=== PATIENT | female | born 1990 | race Caucasian/White ===

== ENCOUNTER 2017-03-09 10:03 | Emergency (ER) | payer MEDICAID ==
[~2017-03-09] VITALS: Ht 154.9 cm; Wt 108.0 kg
[2017-03-09 10:23] VITALS: BP 136/63
--- NOTE | 2017-03-09 10:24 | PHYS DOC ---
Adult General Chief Complaint Chief Complaint: DENTAL PROBLEM HPI HPI Patient is a 26 year old female with history of migraine headaches currently on propranolol who presents today with dental pain mild in nature on the left lower gum that began yesterday. Patient states she is in a [facility] care [facility]. Patient denies any fever or trismus. Review of Systems Review of Systems Constitutional: Denies fever or chills [] Eyes: Denies change in visual acuity, redness, or eye pain [] HENT: Dental pain Musculoskeletal: Denies back pain or joint pain [] Integument: Denies rash or skin lesions [] Neurologic: Denies headache, focal weakness or sensory changes [] Endocrine: Denies polyuria or polydipsia [] Allergies Allergies Allergies Coded Allergies Type Severity Reaction Last Updated Verified No Known Drug Allergies 03/09/17 No Physical Exam Physical Exam Constitutional: Well developed, well nourished, no acute distress, non-toxic appearance. [] HENT: Normocephalic, atraumatic, bilateral external ears normal, oropharynx moist, no oral exudates, nose normal. [] Tooth # 17 is broken, there is dental carriers throughout her teeth, no gum redness Skin: Warm, dry, no erythema, no rash. [] Back: No tenderness, no CVA tenderness. [] Extremities: No tenderness, no cyanosis, no clubbing, ROM intact, no edema. [] Neurologic: Alert and oriented X 3, normal motor function, normal sensory function, no focal deficits noted. [] Psychologic: Affect normal, judgement normal, mood normal. [] EKG EKG [] Radiology/Procedures Radiology/Procedures [] Course & Med Decision Making Course & Med Decision Making Pertinent Labs and Imaging studies reviewed. (See chart for details) Patient is infected dental caries. OB discharged with amoxicillin and Ultram for pain. She was provided a dental list for follow-up. She was provided return precautions and discharged in stable condition. Dragon Disclaimer Dragon Disclaimer This electronic medical record was generated, in whole or in part, using a voice recognition dictation system. Departure Departure Impression: Primary Impression: Infected dental caries Additional Impression: Dentalgia Disposition: HOME, SELF-CARE Condition: STABLE Referrals: NO PCP (PCP) Follow-up with a dentist from the list provided Patient Instructions: Dental Caries Additional Instructions: You were seen for infected dental caries. Please follow-up with a dentist from the list provided in the next 7 days. Ensure you complete your antibiotics. Scripts Amoxicillin (AMOXICILLIN) 875 Mg Tablet 1 TAB PO BID, #20 TAB Prov: ANKITA SALDANA APRN 03/09/17 Tramadol Hcl (ULTRAM) 50 Mg Tablet 1 TAB PO Q6HRS, #30 TAB Prov: ANKITA SALDANA APRN 03/09/17 Problem Qualifiers ANKITA SALDANA APRN March 09, 2017 10:24
[2017-03-09] MEDS ORDERED: TRAM-29 PO (10:29)
[2017-03-09] MEDS ORDERED: AMOX875T PO (10:29)
== END 2017-03-09 10:46 | disposition home or self-care (01) ==
LOC: ER 10:03
DX: K02.9 Dental caries, unspecified (principal); G43.909 Migraine, unspecified, not intractable, without status migrainosus
CPT/HCPCS: 99283

== ENCOUNTER 2017-03-14 11:08 | Emergency (ER) | payer MEDICAID ==
[~2017-03-14] VITALS: Ht 154.9 cm; Wt 108.0 kg
[~2017-03-14 11:08] MED LIST: AMOX875T PO; TRAM-29 PO
[2017-03-14 11:30] VITALS: BP 141/82
[2017-03-14] MEDS ORDERED: HYDR-971 PO (12:08)
[2017-03-14] MEDS ORDERED: CHLO15MO2 PO (12:08)
--- NOTE | 2017-03-14 12:14 | PHYS DOC ---
Past Medical History Past Medical History: Cancer, Fibromyalgia, Migraines, Other Additional Past Medical Histor: PTSD, GASTROPARESIS, SKIN CA Past Surgical History: Cholecystectomy, Tonsillectomy, Other Additional Past Surgical Histo: SKIN CA REMOVAL, VAGINAL SX Alcohol Use: None Drug Use: None Adult General Chief Complaint Chief Complaint: DENTAL PROBLEM HPI HPI Patient is a 26 year old female who presents with ongoing dental pain. Currently on tramadol, penicillin, and ibuprofen without relief. No fevers. dental appointment next week. Review of Systems Review of Systems Constitutional: Denies fever or chills [] Eyes: Denies change in visual acuity, redness, or eye pain [] HENT: Denies nasal congestion or sore throat [] Respiratory: Denies cough or shortness of breath [] Cardiovascular: denies chest pain GI: Denies abdominal pain, nausea, vomiting, bloody stools or diarrhea [] : Denies dysuria or hematuria [] Musculoskeletal: Denies back pain or joint pain [] Integument: Denies rash or skin lesions [] Neurologic: Denies headache, focal weakness or sensory changes [] Allergies Allergies Allergies Coded Allergies Type Severity Reaction Last Updated Verified paroxetine Allergy Intermediate 03/14/17 Yes Physical Exam Physical Exam Constitutional: Well developed, well nourished, no acute distress, non-toxic appearance. [] HENT: Normocephalic, atraumatic, bilateral external ears normal, oropharynx moist, no oral exudates, nose normal. open decay base of tooth #18 with minimal surrounding erythema, no fluctuance. Eyes: PERRLA, EOMI, conjunctiva normal, no discharge. [] Neck: Normal range of motion, no tenderness, supple, no stridor. [] Cardiovascular:Heart rate regular at 100 and regular rhythm Lungs & Thorax: no resp distress Extremities: No tenderness, no cyanosis, no clubbing, ROM intact, no edema. [] Neurologic: Alert and oriented X 3, normal motor function, normal sensory function, no focal deficits noted. [] Current Patient Data Vital Signs Vital Signs Date Time Temp Pulse Resp B/P (MAP) Pulse Ox O2 Delivery O2 Flow Rate FiO2 03/14/17 11:30 98.3 122 18 96 Room Air 98.3 EKG EKG [] Radiology/Procedures Radiology/Procedures [] Course & Med Decision Making Course & Med Decision Making Pertinent Labs and Imaging studies reviewed. (See chart for details) counseled on completing antibiotics and follow-up with dentist. Added norco and peridex. Dragon Disclaimer Dragon Disclaimer This electronic medical record was generated, in whole or in part, using a voice recognition dictation system. Departure Departure Impression: Primary Impression: Dental infection Disposition: HOME, SELF-CARE Condition: STABLE Patient Instructions: Dental Pain Scripts Chlorhexidine Gluconate (PERIDEX) 15 Ml Mouthwash 15 ML PO BID, #473 ML swish and spit Prov: LIUNS MARTINEZ MD 03/14/17 Hydrocodone/Apap 5-325 (NORCO 5-325 TABLET) 1 Each Tablet 1-2 EACH PO PRN Q6HRS Y for PAIN, #8 as needed for pain Prov: LINUS MARTINEZ MD 03/14/17 LINUS MARTINEZ MD March 14, 2017 12:14
== END 2017-03-14 12:18 | disposition home or self-care (01) ==
LOC: ER 11:08
DX: K04.7 Periapical abscess without sinus (principal); M79.7 Fibromyalgia; G43.909 Migraine, unspecified, not intractable, without status migrainosus; F43.10 Post-traumatic stress disorder, unspecified; K31.84 Gastroparesis; Z88.8 Allergy status to other drugs, medicaments and biological substances
CPT/HCPCS: 99283

== ENCOUNTER 2017-09-24 10:49 | Emergency (ER) | payer MEDICAID, OTHER ==
[~2017-09-24] VITALS: Ht 154.9 cm; Wt 131.5 kg
[~2017-09-24 10:49] MED LIST changes: +CHLO15MO2 PO; +HYDR-971 PO; -TRAM-29 PO; +TRAM-48 PO
[2017-09-24 10:55] VITALS: BP 137/88
--- NOTE | 2017-09-24 11:11 | PHYS DOC ---
Past Medical History Past Medical History: Cancer, Fibromyalgia, Migraines, Other Additional Past Medical Histor: PTSD, GASTROPARESIS, SKIN CA Past Surgical History: Cholecystectomy, Tonsillectomy, Other Additional Past Surgical Histo: SKIN CA REMOVAL, VAGINAL SX Alcohol Use: None Drug Use: None Adult General Chief Complaint Chief Complaint: SHORTNESS OF BREATH HPI HPI Patient is a 27 year old female with history of fibromyalgia, migraine headaches, who presents today complaining of a cough for 1 day with wheezing. Patient is also complaining of shortness of breath on exertion. Patient denies any fever. Denies any chest pain. Patient denies any history of smoking, denies any hormone use, denies any recent hospitalizations, denies any chest pain, denies any personal family history of DVT or PE. Review of Systems Review of Systems Constitutional: Denies fever or chills [] Eyes: Denies change in visual acuity, redness, or eye pain [] HENT: Denies nasal congestion or sore throat [] Respiratory: Reports cough, wheezing and shortness of breath [] Cardiovascular: No additional information not addressed in HPI [] GI: Denies abdominal pain, nausea, vomiting, bloody stools or diarrhea [] : Denies dysuria or hematuria [] Musculoskeletal: Denies back pain or joint pain [] Integument: Denies rash or skin lesions [] Neurologic: Denies headache, focal weakness or sensory changes [] All other systems were reviewed and found to be within normal limits, except as documented in this note. Current Medications Current Medications Current Medications Medications (Trade) Dose Ordered Sig/Lauren Start Time Stop Time Status Last Admin Dose Admin Albuterol/ Ipratropium (Duoneb) 3 ml 1X ONCE 09/24/17 11:15 09/24/17 11:16 DC 09/24/17 11:23 3 ML Prednisone (Prednisone) 60 mg 1X ONCE 09/24/17 11:15 09/24/17 11:16 DC Allergies Allergies Allergies Coded Allergies Type Severity Reaction Last Updated Verified paroxetine Allergy Intermediate 03/14/17 Yes Physical Exam Physical Exam Constitutional: Well developed overweight patient, well nourished, no acute distress, non-toxic appearance. [] HENT: Normocephalic, atraumatic, bilateral external ears normal, oropharynx moist, no oral exudates, nose normal. [] Eyes: PERRLA, EOMI, conjunctiva normal, no discharge. [] Neck: Normal range of motion, no tenderness, supple, no stridor. [] Cardiovascular:Heart rate regular rhythm, no murmur [] Lungs & Thorax: Bilateral breath sounds clear to auscultation [] Abdomen: Bowel sounds normal, soft, no tenderness, no masses, no pulsatile masses. [] Skin: Warm, dry, no erythema, no rash. [] Back: No tenderness, no CVA tenderness. [] Extremities: No tenderness, no cyanosis, no clubbing, ROM intact, no edema. [] Neurologic: Alert and oriented X 3, normal motor function, normal sensory function, no focal deficits noted. [] Psychologic: Affect normal, judgement normal, mood normal. [] Current Patient Data Vital Signs Vital Signs Date Time Temp Pulse Resp B/P (MAP) Pulse Ox O2 Delivery O2 Flow Rate FiO2 09/24/17 11:25 Room Air 09/24/17 10:55 98.0 98 18 100 98.0 EKG EKG [] Radiology/Procedures Radiology/Procedures [] Course & Med Decision Making Course & Med Decision Making Pertinent Labs and Imaging studies reviewed. (See chart for details) This is a 27-year-old female patient presenting to the ED today with a cough for 1 week wheezing and shortness of breath. Patient's lungs are clear on arrival to the ED. Her vitals are stable with oxygen saturation at 100%. Chest x -ray interpreted by radiologist is negative for any acute findings. Patient probably has some viral bronchitis going on, her PERC score is zero. Discharged with albuterol inhaler prednisone and Tessalon Perles. Instructed to follow-up with her own PCP in one week. Provided return precautions and discharged in stable condition. Dragon Disclaimer Dragon Disclaimer This electronic medical record was generated, in whole or in part, using a voice recognition dictation system. Departure Departure Impression: Primary Impression: Acute bronchitis Disposition: 01 HOME, SELF-CARE Condition: STABLE Referrals: NO PCP (PCP) Follow-up with your own primary care doctor in 1-2 weeks Patient Instructions: Acute Bronchitis, [id number] Additional Instructions: You were seen with symptoms consistent of viral bronchitis. Use the prescribed medications as ordered. Follow-up with your doctor in one week. Come back to the ED at any point symptoms worsen. Scripts Prednisone (PREDNISONE) 50 Mg Tablet 1 TAB PO DAILY, #4 TAB Prov: ANKITA SALDANA APRN 09/24/17 Benzonatate (TESSALON PERLE) 100 Mg Capsule 1 CAP PO TID, #30 CAP Prov: ANKITA SALDANA APRN 09/24/17 Albuterol Sulfate (Proair Respiclick) 90 Mcg Aer.pow.ba 1 PUFF IH PRN Q6HRS Y for SHORTNESS OF BREATH, #1 INHALER Prov: ANKITA SALDANA APRN 09/24/17 Problem Qualifiers Primary Impression: Acute bronchitis Bronchitis organism: unspecified organism Qualified Codes: J20.9 - Acute bronchitis, unspecified ANKITA SALDANA APRN Sep 24, 2017 11:11
[2017-09-24] MEDS ORDERED: IPRATRPIUM/ALBUTEROL 0.5/2.5MG 3 ML NEBU. NEB ONE (11:15)
[2017-09-24] MEDS ORDERED: predniSONE 20 MG TABLET PO ONE (11:15)
--- NOTE | 2017-09-24 12:23 | RAD ---
Two view chest History:cough, shortness of breath, symptoms for a week. PA and lateral views of the chest are submitted. Comparison: None Findings: There is no significant infiltrate, pleural effusion, or pneumothorax. The pericardial cardiac silhouette is within normal limits in size. Impression: There is no evidence of acute cardiopulmonary disease.
[2017-09-24] MEDS ORDERED: PROAIR RESPICL90 MCG IH (12:52)
[2017-09-24] MEDS ORDERED: BENZ100C PO (12:52)
[2017-09-24] MEDS ORDERED: PRED50TA PO (12:52)
== END 2017-09-24 13:36 | disposition home or self-care (01) ==
LOC: ER 10:49
DX: J20.9 Acute bronchitis, unspecified (principal); M79.7 Fibromyalgia; F43.10 Post-traumatic stress disorder, unspecified; G43.909 Migraine, unspecified, not intractable, without status migrainosus; Z88.8 Allergy status to other drugs, medicaments and biological substances
CPT/HCPCS: 71020; 94250; 94640; 99284; J7512; J7620

== ENCOUNTER 2017-10-03 11:29 | Emergency (ER) | payer OTHER ==
[~2017-10-03] VITALS: Ht 154.9 cm; Wt 135.2 kg
[~2017-10-03 11:29] MED LIST changes: +BENZ100C PO; +PRED50TA PO; +PROAIR RESPICL90 MCG IH
[2017-10-03] MEDS ORDERED: IV NORMAL SALINE 1000ML BAG 1,000 ML IV SCH (12:28)
[2017-10-03] MEDS ORDERED: FAMOTIDINE 20 MG/2 ML VIAL IVP ONE (12:30)
[2017-10-03] MEDS ORDERED: ONDANSETRON PF 4 MG/2 ML VIAL. IV ONE ×2 (12:30→15:45)
--- NOTE | 2017-10-03 12:36 | PHYS DOC ---
Past Medical History Past Medical History: Fibromyalgia, GERD, Migraines, Other Additional Past Medical Histor: GASTROPARESIS Past Surgical History: Cholecystectomy, Other Additional Past Surgical Histo: ADHESIONS Alcohol Use: None Drug Use: None Adult General Chief Complaint Chief Complaint: NAUSEA/VOMITING/DIARRHA HPI HPI Patient is a 27 year old female who presents with complaint of nausea, vomiting , diarrhea, and abdominal pain over the past 7 days. Patient states that she started having diarrhea initially but started having vomiting over the past 2-3 days. The patient states that she is having diffuse dull abdominal pain which she rates currently as 8 out of 10. Patient states that she has had numerous episodes of loose watery stools and has had multiple episodes of nausea. Patient states that she has been unable to tolerate any oral intake. Patient states that she was recently treated for a dental infection and had to be hospitalized at another facility for treatment. She states that this was less than a month ago. Patient has not taken any medications to help with her symptoms at this time. Review of Systems Review of Systems Constitutional: Denies fever or chills [] Eyes: Denies change in visual acuity, redness, or eye pain [] HENT: Denies nasal congestion or sore throat [] Respiratory: Denies cough or shortness of breath [] Cardiovascular: Denies chest pain or edema[] GI: Abdominal pain, nausea, vomiting, diarrhea[] : Denies dysuria or hematuria [] Musculoskeletal: Denies back pain or joint pain [] Integument: Denies rash or skin lesions [] Neurologic: Denies headache, focal weakness or sensory changes [] All other systems were reviewed and found to be within normal limits, except as documented in this note. Current Medications Current Medications Current Medications Medications (Trade) Dose Ordered Sig/Lauren Start Time Stop Time Status Last Admin Dose Admin Famotidine (Pepcid Vial) 20 mg 1X ONCE 10/03/17 12:30 10/03/17 12:32 DC 10/03/17 13:08 20 MG Fentanyl Citrate (Fentanyl 2ml Vial) 50 mcg PRN Q15MIN PRN 10/03/17 12:30 10/03/17 16:21 DC 10/03/17 14:01 50 MCG Metronidazole (Flagyl) 500 mg 1X ONCE 10/03/17 15:45 10/03/17 15:46 DC 10/03/17 15:56 500 MG Multi-Ingredient Mouthwash/Gargle (Gi Cocktail Single Dose) 15 ml 1X ONCE 10/03/17 14:00 10/03/17 14:01 DC 10/03/17 14:01 15 ML Ondansetron HCl (Zofran) 4 mg 1X ONCE 10/03/17 15:45 10/03/17 15:46 DC 10/03/17 15:56 4 MG Sodium Chloride 1,000 ml @ 1,000 mls/hr Q1H 10/03/17 12:28 10/03/17 13:27 DC 10/03/17 13:07 1,000 MLS/HR Allergies Allergies Allergies Coded Allergies Type Severity Reaction Last Updated Verified paroxetine Allergy Intermediate 03/14/17 Yes Physical Exam Physical Exam Constitutional: Alert, afebrile, appears ill. [] HENT: Normocephalic, atraumatic, bilateral external ears normal, oropharynx moist, no oral exudates, nose normal. [] Eyes: PERRLA, EOMI, conjunctiva normal, no discharge. [] Neck: Normal range of motion, no tenderness, supple, no stridor. [] Cardiovascular: Tachycardia, regular rhythm, no murmur [] Lungs & Thorax: Bilateral breath sounds clear to auscultation [] Abdomen: Bowel sounds normal, soft, diffusely tender in all 4 quadrants with no guarding or rebound tenderness, no masses, no pulsatile masses. [] Skin: Warm, dry, no erythema, no rash. [] Back: No tenderness, no CVA tenderness. [] Extremities: No tenderness, no cyanosis, no clubbing, ROM intact, no edema. [] Neurologic: Alert and oriented X 3, normal motor function, normal sensory function, no focal deficits noted. [] Current Patient Data Vital Signs Vital Signs Date Time Temp Pulse Resp B/P (MAP) Pulse Ox O2 Delivery O2 Flow Rate FiO2 10/03/17 15:35 102 22 121/81 (94) 97 Room Air 10/03/17 12:14 97.8 97.8 Lab Values Laboratory Tests Test 10/03/17 12:10 10/03/17 12:15 10/03/17 13:00 Urine Collection Type Unknown Urine Color Yellow Urine Clarity Clear Urine pH 7.5 Urine Specific Ehrenberg 1.020 Urine Protein Negative mg/dL (NEG-TRACE) Urine Glucose (UA) Negative mg/dL (NEG) Urine Ketones (Stick) Negative mg/dL (NEG) Urine Blood Negative (NEG) Urine Nitrite Negative (NEG) Urine Bilirubin Negative (NEG) Urine Urobilinogen Dipstick 0.2 mg/dL (0.2 mg/dL) Urine Leukocyte Esterase Trace (NEG) Urine RBC 0 /HPF (0-2) Urine WBC 5-10 /HPF (0-4) Urine Squamous Epithelial Cells Many /LPF Urine Bacteria Moderate /HPF (0-FEW) Urine Mucus Marked /LPF POC Urine HCG, Qualitative Hcg negative (Negative) White Blood Count 9.2 x10^3/uL (4.0-11.0) Red Blood Count 4.96 x10^6/uL (3.50-5.40) Hemoglobin 14.5 g/dL (12.0-15.5) Hematocrit 42.6 % (36.0-47.0) Mean Corpuscular Volume 86 fL (79-100) Mean Corpuscular Hemoglobin 29 pg (25-35) Mean Corpuscular Hemoglobin Concent 34 g/dL (31-37) Red Cell Distribution Width 12.2 % (11.5-14.5) Platelet Count 361 x10^3/uL (140-400) Neutrophils (%) (Auto) 71 % (31-73) Lymphocytes (%) (Auto) 23 % (24-48) L Monocytes (%) (Auto) 4 % (0-9) Eosinophils (%) (Auto) 2 % (0-3) Basophils (%) (Auto) 0 % (0-3) Neutrophils # (Auto) 6.6 x10^3uL (1.8-7.7) Lymphocytes # (Auto) 2.1 x10^3/uL (1.0-4.8) Monocytes # (Auto) 0.3 x10^3/uL (0.0-1.1) Eosinophils # (Auto) 0.2 x10^3/uL (0.0-0.7) Basophils # (Auto) 0.0 x10^3/uL (0.0-0.2) Sodium Level 136 mmol/L (136-145) Potassium Level 3.9 mmol/L (3.5-5.1) Chloride Level 100 mmol/L (98-107) Carbon Dioxide Level 29 mmol/L (21-32) Anion Gap 7 (6-14) Blood Urea Nitrogen 14 mg/dL (7-20) Creatinine 1.0 mg/dL (0.6-1.0) Estimated GFR (Cockcroft-Gault) 66.0 BUN/Creatinine Ratio 14 (6-20) Glucose Level 109 mg/dL (70-99) H Calcium Level 9.0 mg/dL (8.5-10.1) Total Bilirubin 0.8 mg/dL (0.2-1.0) Aspartate Amino Transferase (AST) 29 U/L (15-37) Alanine Aminotransferase (ALT) 44 U/L (14-59) Alkaline Phosphatase 83 U/L (46-116) Total Protein 7.5 g/dL (6.4-8.2) Albumin 3.9 g/dL (3.4-5.0) Albumin/Globulin Ratio 1.1 (1.0-1.7) Lipase 126 U/L (73-393) Laboratory Tests 10/03/17 13:00 Laboratory Tests 10/03/17 13:00 EKG EKG Not performed[] Radiology/Procedures Radiology/Procedures Not performed[] Course & Med Decision Making Course & Med Decision Making Pertinent Labs and Imaging studies reviewed. (See chart for details) Patient was given IV fluids, Zofran, Pepcid, and fentanyl in the emergency department. The patient was administered oral Flagyl as patient has risk factors for possible C. difficile infection. The patient however did not provide any additional stool sample in the emergency department for culture. Advised follow-up with primary doctor in 2-3 days for reevaluation. Patient will continue on empiric treatment with oral Flagyl. Advised return to the emergency department for any worsening symptoms. Patient voiced understanding and in agreement with treatment plan. Dragon Disclaimer Dragon Disclaimer This electronic medical record was generated, in whole or in part, using a voice recognition dictation system. Departure Departure Impression: Primary Impression: Diarrhea Additional Impression: Nausea & vomiting Disposition: HOME, SELF-CARE Condition: IMPROVED Referrals: NO PCP (PCP) Patient Instructions: Diarrhea, Nausea and Vomiting Additional Instructions: Follow-up with your primary doctor in 2-3 days for reevaluation. Return to the emergency department for any worsening symptoms. Scripts Metronidazole (FLAGYL) 500 Mg Tablet 500 MG PO TID for 10 Days, #30 TAB Prov: JAGJIT QUINTANILLA MD 10/03/17 Ondansetron (ZOFRAN ODT) 4 Mg Tab.rapdis 1 TAB SL Q8HRS Y for NAUSEA/VOMITING, #15 TAB Prov: JAGJIT QUINTAINLLA MD 10/03/17 Problem Qualifiers Primary Impression: Diarrhea Diarrhea type: presumed infectious Qualified Codes: A09 - Infectious gastroenteritis and colitis, unspecified Additional Impression: Nausea & vomiting Vomiting type: unspecified Vomiting Intractability: unspecified Qualified Codes: R11.2 - Nausea with vomiting, unspecified JAGJIT QUINTANILLA MD Oct 03, 2017 12:35
[2017-10-03] MEDS: fentaNYL PF VIAL 100 MCG/2 ML VIAL IV PRN ×2 (13:10→14:01)
[2017-10-03 13:12] LABS: BASO % 0 % (0-3); EOS % 2 % (0-3); HEMATOCRIT 42.6 % (36.0-47.0); HEMOGLOBIN 14.5 g/dL (12.0-15.5); LYMPH # 2.1 x10^3/uL (1.0-4.8); LYMPH % 23 % (24-48); MEAN CORPUSCULAR HEMOGLOBIN 29 pg (25-35); MEAN CORPUSCULAR HGB CONC 34 g/dL (31-37); MEAN CORPUSCULAR VOLUME 86 fL (79-100); MONO % 4 % (0-9); NEUT % 71 % (31-73); PLATELET COUNT 361 x10^3/uL (140-400); RED BLOOD COUNT 4.96 x10^6/uL (3.50-5.40); RED CELL DISTRIBUTION WIDTH 12.2 % (11.5-14.5); WHITE BLOOD COUNT 9.2 x10^3/uL (4.0-11.0)
[2017-10-03 13:21] LABS: POTASSIUM 3.9 mmol/L (3.5-5.1)
[2017-10-03 13:26] LABS: BILIRUBIN,URINE NEGATIVE (NEG); GLUCOSE,URINE NEGATIVE (NEG); NITRITE,URINE NEGATIVE (NEG); PH,URINE 7.5; PROTEIN,URINE NEGATIVE (NEG-TRACE); UROBILINOGEN,URINE 0.2 mg/dL (0.2 mg/dL)
[2017-10-03 13:27] LABS: ALBUMIN 3.9 g/dL (3.4-5.0); ALBUMIN/GLOBULIN RATIO 1.1 (1.0-1.7); TOTAL BILIRUBIN 0.8 mg/dL (0.2-1.0); TOTAL PROTEIN 7.5 g/dL (6.4-8.2)
[2017-10-03 13:39] LABS: BACTERIA,URINE MODERATE /HPF (0-FEW); RBC,URINE 0 /HPF (0-2); SQUAMOUS EPITHELIAL CELL,UR MANY /LPF
[2017-10-03] MEDS ORDERED: LIDO:MAALOX:DONNATAL 1:1:1 15 ML SINGLE DOSE SWSW ONE (14:00)
[2017-10-03 15:35] VITALS: BP 121/81
[2017-10-03] MEDS ORDERED: metroNIDAZOLE 500 MG TABLET PO ONE (15:45)
[2017-10-03] MEDS ORDERED: METR500T PO (15:56)
[2017-10-03] MEDS ORDERED: ONDA4TAB10 SL (15:56)
== END 2017-10-03 16:04 | disposition home or self-care (01) ==
LOC: ER 11:29
DX: A09 Infectious gastroenteritis and colitis, unspecified (principal); M79.7 Fibromyalgia; K21.9 Gastro-esophageal reflux disease without esophagitis; G43.909 Migraine, unspecified, not intractable, without status migrainosus; K31.84 Gastroparesis; Z88.8 Allergy status to other drugs, medicaments and biological substances; Z90.49 Acquired absence of other specified parts of digestive tract
CPT/HCPCS: 36415; 80053; 81001; 81025; 83690; 85025; 87086; 96361; 96374; 96375; 96376; 99285; J2405; J3010; J7030; S0028

== ENCOUNTER 2017-10-25 18:43 | Emergency (ER) | payer OTHER | END 2017-10-25 19:23 | disposition home or self-care (01) | LOC: ER 18:43 | DX: K04.7 Periapical abscess without sinus (principal); K21.9 Gastro-esophageal reflux disease without esophagitis; G43.909 Migraine, unspecified, not intractable, without status migrainosus; M79.7 Fibromyalgia; Z91.040 Latex allergy status | CPT/HCPCS: 99283 ==

== ENCOUNTER 2018-04-09 09:20 | Emergency (ER) | payer OTHER ==
[2018-04-09 09:58] LABS: URINE HCG POC HCG NEGATIVE (Negative)
== END 2018-04-09 11:22 | disposition home or self-care (01) ==
LOC: ER 09:20
DX: S46.911A Strain of unspecified muscle, fascia and tendon at shoulder and upper arm level, right arm, initial encounter (principal); G43.909 Migraine, unspecified, not intractable, without status migrainosus; K21.9 Gastro-esophageal reflux disease without esophagitis; F43.10 Post-traumatic stress disorder, unspecified; M79.7 Fibromyalgia; Z88.8 Allergy status to other drugs, medicaments and biological substances; Z91.040 Latex allergy status; X58.XXXA Exposure to other specified factors, initial encounter; Y93.89 Activity, other specified; Y99.8 Other external cause status; Y92.89 Other specified places as the place of occurrence of the external cause
CPT/HCPCS: 73030; 81025; 99284